=== PATIENT | male | born 1960 | race Caucasian/White ===

== ENCOUNTER 2021-07-13 23:30 | Emergency (ER) | payer BC | END 2021-07-14 11:00 | disposition admitted as inpatient to this hospital (09) | LOC: ER1 23:30 | DX: T18.5XXA Foreign body in anus and rectum, initial encounter (principal); I10 Essential (primary) hypertension; Z88.0 Allergy status to penicillin; Z79.899 Other long term (current) drug therapy; Z20.822 Contact with and (suspected) exposure to COVID-19; W45.8XXA Other foreign body or object entering through skin, initial encounter | CPT/HCPCS: 74022; 99285; J2001; J2250; J2704; J7120; U0002 ==